=== PATIENT | male | born 1955 | race Caucasian/White ===

== ENCOUNTER 2016-12-20 09:48 | Emergency (ER) | payer MEDICARE ==
[~2016-12-20] VITALS: Ht 182.9 cm; Wt 90.9 kg
[~2016-12-20 09:48] MED LIST: ASPI325T32 PO; BUPR300T51 PO; LIP40 PO; NAPR500T PO; POTA99TA21 PO; SELE200T11 PO; VITA1CAP PO
[2016-12-20 09:51] VITALS: BP 126/80; PULSE 62; RESP 18; O2SAT 95
--- NOTE | 2016-12-20 10:22 | ED.REPORT ---
HPI-Back Pain 40 and Over Date of Service Dec 20, 2016 ED Provider: Carrie Go MD Pt is a 61 y/o male w/ a hx of chronic back pain, severe osteoarthritis, herniated discs, spinal fusion, CAD, CHF, HTN, presenting to the ED c/o gradually worsening lumbar back pain onset 2 weeks ago. For the past 2 days, he has been experiencing bilateral leg weakness with associated numbness of the bilateral feet. He has never experienced numbness or weakness of his legs before. He had a BM this morning which reduced his pain from 10/10 to 3/10 which relieved his leg weakness. He denies bowel/bladder incontinence, fever. He denies possible mechanism of injury. He has been more sedentary than normal but otherwise is unsure what may be causing this. He has an appointment with neurosurgeon MATEO Maldonado tomorrow. Latest MRIs: Lumbar in 2003 and 2005. Cervical in February 2016. Nursing Notes Stated Complaint: BACK PAIN Chief Complaint: Back Pain or Injury Nursing Notes Reviewed: Yes Allergies: Coded Allergies: lisinopril (Verified Allergy, Mild, cough, 01/25/16) Scheduled Aspirin (Aspirin) 325 Mg Tablet 325 MG PO DAILY Atorvastatin (Lipitor) 40 Mg Tablet 40 MG PO DAILY Bupropion ER (Wellbutrin XL) 300 Mg Tab.er.24h 300 MG PO DAILY Selenomethionine (Selenium) 200 Mcg Tablet 200 MCG PO DAILY Scheduled PRN Naproxen (Naprosyn) 500 Mg Tablet 500 MG PO BID PRN PRN For Pain Miscellaneous Medications Potassium Gluconate (Potassium) 99 Mg Tablet 99 MG PO Vitamin B Complex (Vitamin B Complex) 1 Each Capsule 1 EACH PO General Time Seen by MD: 10:04 Chief Complaint Lumbar pain Hx Obtained From: Patient Arrived By: Wheelchair Sudden in Onset?: No Onset Occurred: More than a week ago... (2 weeks) Symptom Duration: Since onset Caused by: Spontaneous/no mechanism Location: : Perispinal lumbar: Spinal lumbar area Quality: Painful Severity: Current: Moderate Severity: Maximum: Severe Similar Sx Previous: Yes Past Medical History Past Medical History Hx [place] athritis Chronic back pain Reports: Congestive heart failure, Coronary artery disease, Hypertension Reports: Depression Past Surgical History Spinal fusion Reports: Appendectomy, CABG, Inguinal hernia repair Smoking History Current Every Day Smoker Social History Other Social History: Good social support, , Local resident Ambulatory Status Independent Review of Systems Constitutional: Denies: Chills, Fever Respiratory: Denies: Shortness of breath Cardiovascular: Denies: Chest pain GI: Denies: Abdominal pain Musculoskeletal: Reports: Lumbar pain Neurologic: Reports: Numbness, Weakness, Denies: Bladder dysfunction, Bowel dysfunction Complete sys rev & neg: except as marked. Physical Exam Initial Vital Signs Vital Signs (First) Date Time Temp Pulse Resp B/P Pulse Ox O2 Delivery O2 Flow Rate FiO2 12/20/16 09:51 36.7 62 18 126/80 95 Room Air Initial VS: Reviewed, Vital signs normal Head / Eyes: Atraumatic, Normocephalic, PERRL ENT: Mucous membranes moist, Conjunctiva normal, No scleral icterus Neck: Supple, Full range of motion Skin: Warm, Dry, No cyanosis Psychiatric: Mood/affect normal, Behavior normal, Normal thought content General/Constitutional: Awake, Alert, Cooperative, Not toxic appearing Appearance / Presentation: Positive: In pain Respiratory / Chest: Atraumatic, Breath sounds NL, Breath sounds = bilat, No respiratory distress, No rales, No rhonchi, No wheezing, No retractions, No stridor, No chest tenderness, No chest wall deformity, No crepitus Cardiovascular: Heart rate NL, Regular rhythm, Heart sounds NL, No gallop, No murmurs, No rubs, Cap refill not delayed, Peripheral circulation NL Abdomen: Atraumatic, Soft Back: Atraumatic Waves of positional muscle spasm with diaphoresis accompanied with severe pain Neurologic: Oriented X3, Speech NL 3+ patellar reflex on left, 2+ on the right LLE has decreased sensation from the medial aspect of the knee down to the toes. Lateral aspect decreased sensation from mid calf down to the toes Interpretation & Diagnostics Interpretation & Diagnostics: Lumbar spine MRI w/ and w/out contrast: IMPRESSION: 1. Status post L4-L5 fusion. 2. Multilevel degenerative disc disease. 3. Multilevel facet arthropathy. 4. Right central L3-L4 disc extrusion. Extruded disc material impinges upon the right L4 nerve root. Please correlate with clinical data. 5. Severe L3-L4 central canal stenosis. Mild to moderate L2-L3 central canal narrowing. Mild T12-L1 and L4-L5 central canal narrowing. 6. Mild bilateral L2-L3 and L5-S1 neural foraminal narrowing. Severe right and moderate left L3-L4 neural foraminal narrowing. Severe right and mild left L4-L5 neural foraminal narrowing. Dictated by: Mari Wesley MD, PhD on 12/20/2016 at 12:53 Approved by: Mari Wesley MD, PhD on 12/20/2016 at 13:03 Re-Eval/Medical Decision Re-Evaluation/Progress #1: Time of Eval: 11:30 Re-Evaluation/Progress Note: Informed pt of need for MRI. He agrees with plan. Re-Evaluation/Progress #2: Time of Eval: 13:46 Patient Status: Pain improved Re-Evaluation/Progress Note: Pt rechecked. Informed pt of plan for treatment. Pt understands and agrees with plan for treatment. F/U instructions and RTER warnings given. All questions addressed. 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 With new and progressive neurologic symptoms and no recent imaging, he recommends MRI of the lumbar spine with and without contrast with spin echo view. Counseled Regarding: Diagnosis, Lab results, Need for follow-up, When/why to return to ED Discharge & Departure Impression: Primary Impression: Lumbar radiculopathy, acute Additional Impression: Lumbar radiculopathy, chronic Disposition: Home Discharge Condition All VS Reviewed: Yes Condition: Stable Additional Instructions: Your MRI shows significant findings that do correlate with your symptoms. Fortunately there is no need for emergent surgery today. You need to keep your apt with the neurosurgical clinic tomorrow to see what the next treatment opts for you may be. At this point, ibuprofen and the vicodin you currently have are the best options for you. I'm sorry you are hurting so much. I hope there is some relief for you in the near future. Referrals: Pennie Matthews PA-C (PCP) Tien Maldonado PA-C Attestation Portions of this note were transcribed by Jordan Alvarenga. I, Dr. Go personally performed the history, physical exam and medical decision-making; I reviewed and confirmed the accuracy of the information in the transcribed note. Signed by Bartolo Alonso, 12/20/16 - [id number] copies to: Tien Maldonado PA-C; Pennie Matthews PA-C, Shawna L MD Dec 20, 2016 10:22 JORDAN ALVARENGA Dec 20, 2016 10:54
[2016-12-20] MEDS ORDERED: Ketorolac 30 mg/mL 2 mL Inj IM ONE (10:25)
--- NOTE | 2016-12-20 13:04 | DRSVH ---
PROCEDURE: MRI LUMBAR SPINE WITHOUT CONTRAST ([id number]) INDICATIONS: New, progressive RLE weakness and numbness TECHNIQUE: Noncontrast sagittal T1 spin echo and T2 fast echo, sagittal STIR, axial T1 and T2 fast spin echo thr ough the lumbar spine. In cases with scoliosis, additional coronal T2 fast spin echo may be performe d. COMPARISON: [facility], MR, LUMBAR SPINE W/O CONTRAST, 10/25/2006, 17:57. FINDINGS: Image quality: Excellent. Alignment and Curvature: Postsurgical changes compatible with prior L4 and L5 r fusion are noted. Th ere is normal bony alignment and curvature. Bone Marrow: Reactive endplate changes are noted adjacent to the L4-L5 disc. No acute vertebral body compression fractures. Spinal Cord: Conus medullaris terminates at the L1 level. Visualized cord demonstrates normal signa l and size. Paraspinous Soft Tissues: No paravertebral masses. T12-L1: Loss of disc signal and height. Moderate, diffuse disc bulge. Mild central canal secondary to disc disease. No neural foraminal narrowing. No neural impingement. L1-L2: Loss of disc signal. Mild, diffuse disc bulge. No central stenosis. No neural foraminal narrow ing. No neural impingement. L2-L3: Loss of disc signal and mild loss of disc height. Moderate, diffuse disc bulge. Mild facet and mild ligamentum flavum hypertrophy. Mild to moderate narrowing of the central canal secondary to dis c disease and posterior element hypertrophy. Mild bilateral neural foraminal narrowing secondary to d isc and facet disease. L3-L4: Loss of disc signal and mild loss of disc height. Moderate, diffuse disc bulge. Moderate-sized right central disc extrusion. Mild facet and mild ligamentum flavum hypertrophy. Severe central sten osis secondary to disc disease and posterior element hypertrophy. Right central extruded disc materia l impinges upon the right L4 nerve root. Severe right and moderate left neural foraminal narrowing se condary to disc and facet disease. L4-L5: Loss of disc signal and height. Mild, diffuse disc bulge. Mild bilateral facet hypertrophy. Mi ld narrowing of the central canal secondary to disc disease. Severe right and mild left neuroforamina l narrowing secondary to disc and facet disease. L5-S1: Loss of the signal. Minimal, diffuse disc bulge. Moderate bilateral facet hypertrophy. No cent ral stenosis. Mild bilateral neuroforaminal narrowing secondary to disc and facet disease. No neural impingement. IMPRESSION: 1. Status post L4-L5 fusion. 2. Multilevel degenerative disc disease. 3. Multilevel facet arthropathy. 4. Right central L3-L4 disc extrusion. Extruded disc material impinges upon the right L4 nerve root. Please correlate with clinical data. 5. Severe L3-L4 central canal stenosis. Mild to moderate L2-L3 central canal narrowing. Mild T12-L1 a nd L4-L5 central canal narrowing. 6. Mild bilateral L2-L3 and L5-S1 neural foraminal narrowing. Severe right and moderate left L3-L4 ne ural foraminal narrowing. Severe right and mild left L4-L5 neural foraminal narrowing. Dictated by: Mari Wesley MD, PhD on 12/20/2016 at 12:53 Approved by: Mari Wesley MD, PhD on 12/20/2016 at 13:03
[2016-12-20 13:48] VITALS: BP 122/78; PULSE 60; RESP 18; O2SAT 95
== END 2016-12-20 13:50 | disposition home or self-care (01) ==
LOC: SED 10:54
DX: M54.16 Radiculopathy, lumbar region (principal); I11.0 Hypertensive heart disease with heart failure; I50.9 Heart failure, unspecified; I25.10 Atherosclerotic heart disease of native coronary artery without angina pectoris; I25.2 Old myocardial infarction; F17.200 Nicotine dependence, unspecified, uncomplicated; Z95.1 Presence of aortocoronary bypass graft; Z90.49 Acquired absence of other specified parts of digestive tract; Z79.82 Long term (current) use of aspirin; Z88.8 Allergy status to other drugs, medicaments and biological substances
CPT/HCPCS: 72148; 96372; 99284; J1885

== ENCOUNTER 2016-12-21 06:29 | Emergency (ER) | payer MEDICARE ==
[~2016-12-21] VITALS: Ht 182.9 cm; Wt 90.9 kg
[2016-12-21] MEDS ORDERED: Ketorolac 30 mg/mL 2 mL Inj IM ONE (06:35)
--- NOTE | 2016-12-21 06:36 | ED.REPORT ---
HPI-Back Pain 40 and Over Date of Service Dec 21, 2016 ED Provider: Pt is a 61 y/o male w/ a hx of chronic back pain, severe osteoarthritis, herniated discs, spinal fusion, CAD, CHF, HTN, presenting to the ED c/o gradually worsening lumbar back pain onset 2 weeks ago. For the past few days he has also noticed bilateral leg weakness with associated numbness of the bilateral feet. He has never experienced numbness or weakness of his legs before. He denies bowel/bladder incontinence, fever. He denies possible mechanism of injury. He has been more sedentary than normal but otherwise is unsure what may be causing this. He has an appointment with neurosurgeon MATEO Maldonado today Nursing Notes Stated Complaint: BACK PAIN Nursing Notes Reviewed: Yes Allergies: Coded Allergies: lisinopril (Verified Allergy, Mild, cough, 01/25/16) Scheduled Aspirin (Aspirin) 325 Mg Tablet 325 MG PO DAILY Atorvastatin (Lipitor) 40 Mg Tablet 40 MG PO DAILY Bupropion ER (Wellbutrin XL) 300 Mg Tab.er.24h 300 MG PO DAILY Selenomethionine (Selenium) 200 Mcg Tablet 200 MCG PO DAILY Scheduled PRN Naproxen (Naprosyn) 500 Mg Tablet 500 MG PO BID PRN PRN For Pain Miscellaneous Medications Potassium Gluconate (Potassium) 99 Mg Tablet 99 MG PO Vitamin B Complex (Vitamin B Complex) 1 Each Capsule 1 EACH PO General Time Seen by MD: 06:35 Chief Complaint Back pain Hx Obtained From: Patient, EMS Arrived By: Ambulance Sudden in Onset?: No Onset Occurred: More than a week ago... Symptom Duration: Since onset Caused by: Spontaneous/no mechanism, Chronic Injury Location: : Perispinal lumbar Quality: Painful Severity: Current: Moderate Severity: Maximum: Severe Recent Healthcare: Recent doctor visit Similar Sx Previous: Yes Past Medical History Past Medical History Hx [place] athritis Chronic back pain Reports: Congestive heart failure, Coronary artery disease, Hypertension Reports: Depression Past Surgical History Spinal fusion Reports: Appendectomy, CABG, Inguinal hernia repair Smoking History Current Every Day Smoker Social History Other Social History: Good social support, , Local resident Ambulatory Status Independent Review of Systems Constitutional: Denies: Fever Musculoskeletal: Reports: Back pain Neurologic: Reports: Numbness, Weakness, Denies: Bladder dysfunction, Bowel dysfunction Complete sys rev & neg: except as marked. Physical Exam Initial Vital Signs Vital Signs (First) Date Time Temp Pulse Resp B/P Pulse Ox O2 Delivery O2 Flow Rate FiO2 12/21/16 06:49 36.1 61 22 152/91 95 Room Air Initial VS: Reviewed Head / Eyes: Atraumatic, Normocephalic, PERRL ENT: Mucous membranes moist, Conjunctiva normal, No scleral icterus Neck: Supple, Non-tender, Full range of motion Lymphatic: No lymphadenopathy Extremities: Vascular intact, Neuro intact, No swelling, No tenderness Skin: Warm, Dry, No cyanosis Psychiatric: Mood/affect normal, Behavior normal, Normal thought content General/Constitutional: Awake, Alert, Cooperative, Not toxic appearing Respiratory / Chest: Atraumatic, Breath sounds NL, Breath sounds = bilat, No respiratory distress, No rales, No rhonchi, No wheezing Cardiovascular: Heart rate NL, Regular rhythm, Heart sounds NL, No gallop, No murmurs, No rubs, Cap refill not delayed, Peripheral circulation NL, Pulses = bilaterally, No gross BP differential Abdomen: Soft, Non-tender, No guarding, No rebound, No distention, No palpable mass, No pulsatile mass Back: Atraumatic Waves of positional muscle spasm with diaphoresis accompanied with severe pain Neurologic: Oriented X3, Speech NL 3+ patellar reflex on left, 2+ on the right. LLE has decreased sensation from the medial aspect of the knee down to the toes. Lateral aspect decreased sensation from mid calf down to the toes. Re-Eval/Medical Decision Med Decision/Clinical Course pain adequately controlled by toradol. Headed to neurosurg apt from ED today. Source of Hx: Old records, EMS Summary of Info: Lumbar spine MRI w/ and w/out contrast: IMPRESSION: 1. Status post L4-L5 fusion. 2. Multilevel degenerative disc disease. 3. Multilevel facet arthropathy. 4. Right central L3-L4 disc extrusion. Extruded disc material impinges upon the right L4 nerve root. Please correlate with clinical data. 5. Severe L3-L4 central canal stenosis. Mild to moderate L2-L3 central canal narrowing. Mild T12-L1 and L4-L5 central canal narrowing. 6. Mild bilateral L2-L3 and L5-S1 neural foraminal narrowing. Severe right and moderate left L3-L4 neural foraminal narrowing. Severe right and mild left L4-L5 neural foraminal narrowing. Dictated by: Mari Wesley MD, PhD on 12/20/2016 at 12:53 Re-Evaluation/Progress : Time of Eval: 08:08 Re-Evaluation/Progress Note: The patient is feeling better and would like to go home. Counseled Regarding: Diagnosis, Need for follow-up, When/why to return to ED Discharge & Departure Impression: Primary Impression: Lumbar radiculopathy, acute Additional Impression: Lumbar radiculopathy, chronic Disposition: Home Discharge Condition All VS Reviewed: Yes Condition: Stable Additional Instructions: Your MRI that was taken yesterday shows significant findings that do correlate with your symptoms. Fortunately there is no need for emergent surgery today. You need to keep your apt with the neurosurgical clinic today to see what the next treatment opts for you may be. At this point, ibuprofen and the vicodin you currently have are the best options for you. I'm sorry you are hurting so much. I hope there is some relief for you in the near future. Referrals: Pennie Matthews PA-C (PCP) Scribe Attestation Portions of this note were transcribed by Kriss Chapman. I, Dr. Go personally performed the history, physical exam and medical decision-making; I reviewed and confirmed the accuracy of the information in the transcribed note. Signed by: Bartolo Kennedy, 12/21/2016 and 0810. copies to: Pennie Matthews PA-C, Shawna L MD Dec 21, 2016 06:36 Kriss Chapman Dec 21, 2016 06:57
[2016-12-21 06:49] VITALS: BP 152/91; PULSE 61; RESP 22; O2SAT 95
== END 2016-12-21 08:47 | disposition home or self-care (01) ==
LOC: EDSEX 06:29 → SED 06:29 → EDBD 06:29 → EDUNIT# 06:29 → SED 08:47
DX: M54.16 Radiculopathy, lumbar region (principal); I10 Essential (primary) hypertension; I25.10 Atherosclerotic heart disease of native coronary artery without angina pectoris; I50.9 Heart failure, unspecified; F17.200 Nicotine dependence, unspecified, uncomplicated; Z79.82 Long term (current) use of aspirin; Z88.8 Allergy status to other drugs, medicaments and biological substances
CPT/HCPCS: 96372; 99283; G0463; J1885

== ENCOUNTER → 2017-08-08 | Day surgery (SDC) | payer MEDICARE ==
[~2017-08-08] VITALS: Ht 182.9 cm; Wt 89.4 kg
[~2017-08-08] MED LIST changes: +ALPR0.5T8 PO; -BUPR300T51 PO; +BUPR450T PO; +HYDR-3740 PO; -LIP40 PO; +METO50TA3 PO; +MULT-1018 PO; -NAPR500T PO; +NITR0.4T SL; -POTA99TA21 PO; +Propofol 10,000 mCg/mL 20 mL Inj ONE; -SELE200T11 PO; -VITA1CAP PO; +fentaNYL-PF 50 mCg/mL 2 mL Inj ONE
--- NOTE | 2017-08-08 08:02 | PCM.HPANE ---
Patient Data Surgeon Admitting Provider: Attending Provider:Isaac Leos MD Primary Care Physician:Pennie Matthews PA-C Other Provider:Brenda Rg Anesthesia Reason for Visit Melena Ht/WT & BMI Body Mass Index Allergies Coded Allergies: lisinopril (Verified Adverse Reaction, Mild, cough, 08/08/17) Past Anesthesia History Anesthesia History: Denies:: Abnormal Airway, Anesthesia Reactions, Difficult Intubation, Fam Anesthesia Reaction, Fam Malignant Hypertherm, Malignant Hyperthermia Diabetes History Hx Diabetes?: No MRSA MRSA: No Medications Blood Thinner: Aspirin Hypertension Medication: Yes Home Meds Incl Beta Victor Hugo: Yes Date Beta Victor Hugo Taken: Aug 08, 2017 Time Beta Victor Hugo Taken: 07:00 Reported Medications Nitroglycerin SL (Nitrostat)0.4 Mg Tab.subl0.4 Mg SL Q5MIN PRN For Chest Pain # 1 BOTTLE 08/07/17 Metoprolol Tartrate 50 Mg Shzavj76 Mg PO BID 30 Days Ref 0 08/07/17 Multivitamin (Multi Vitamin Daily)1 Each Tablet1 Each PO DAILY 30 Days Ref 0 08/07/17 Hydrocodone-Acetaminophen 10-325 mg 1 Each Tablet1 Tablet PO Q6H PRN For Pain Ref 0 08/07/17 Discontinued Reported Medications Bupropion HCl (Forfivo Xl)450 Mg Tab.er.67i409 Mg PO DAILY 08/07/17 Aspirin 325 Mg Kpmklt125 Mg PO DAILY #1 BOTTLE 08/07/17 Alprazolam 0.5 Mg Tablet0.5 Mg PO TID PRN For Anxiety Ref 0 08/07/17 Selenomethionine (Selenium)200 Mcg Nqbvje332 Mcg PO DAILY 01/25/16 Aspirin 325 Mg Rrkyym206 Mg PO DAILY #1 BOTTLE 01/25/16 Bupropion ER (Wellbutrin XL)300 Mg Tab.er.91a308 Mg PO DAILY #30 TABLET Ref 0 08/12/14 Atorvastatin (Lipitor)40 Mg Guopvj26 Mg PO DAILY 30 Days Ref 0 08/12/14 Potassium Gluconate (Potassium)99 Mg Untdos39 Mg PO 08/12/14 Vitamin B Complex 1 Each Capsule1 Each PO 08/12/14 Discontinued Scripts Naproxen (Naprosyn)500 Mg Zjycco181 Mg PO BID PRN For Pain #20 TABLET Prov:Easton Villalobos MD 01/25/16 History History of ENT Problems?: No HEENT History: Denies:: Abnormal Airway Difficult Intubation Dysphagia Hearing Problem Denture Type: None Teeth Condition: No Teeth Hx of Heart Problems?: Yes Cardiovascular History: Positive for:: Chest Pain Congestive Heart Failure Hypertension Denies:: AICD Atrial Fibrillation Pacemaker Valvular Heart Disease Hx of Respiratory Problem?: No Respiratory History: Denies:: Asthma COPD Cough Hemoptysis Pneumonia Tuberculosis Hx Neurologic Problems?: No Neurological History: Denies:: CVA Hx of GI Problems?: Yes Hx of Problems?: No Hx Musculoskeletal Problems?: No Musculoskeletal History: Denies:: Joint Replacement Psycho Social History: Positive for:: Anxiety Hx Depression Hx Surgeries?: Yes (appendectomy,inguinal herniax2, bypass,spinal fusion) Hx Any Other Health Problems?: Yes Hx Diabetes: No Hx Alcohol Use: NoHx Substance Use: Yes (Marijuana) Smoking Status: Current Every Day Smoker Stop/Bang Risk Assessment Category Category 1A: Patient has history of documented sleep apnea, and HAS NOT received any narcotic, sedative or anesthesia administration during this stay. Category 1B: Patient has history of documented sleep apnea, and HAS received any narcotic , sedative or anesthesia administration during this stay Category 2: Patient has SUSPECTED Obstructive Sleep Apnea, and HAS received any narcotic , sedative or anesthesia administration during this stay. Category 3: Patient has SUSPECTED Obstructive Sleep Apnea and HAS NOT received narcotic, sedative or anesthesia administration during this stay. Category 4: Outpatient in Procedural Areas with known sleep apnea or who screen positive for High Risk via the STOP/BANG questionnaire. Exam Exam General Appearance: Alert, Oriented X3, Cooperative, No Acute Distress HEENT/AIRWAY: MP 2 Lungs: Normal Air Movement Heart: Exam Unremarkable Plan Impression Patient chart reviewed, patient interviewed and anesthestic plan with risks, benefits, and alternatives discussed, and informed consent obtained. NPO per Anesth. Guidelines: Yes ASA Physical Status: ASA3 Severe Disease Anesthetic Plan: MAC Bene/Risks/Altern/Consents: Yes HP Complete Prior to Induction: Yes Tien Verduzco MD Aug 08, 2017 08:02
[2017-08-08 15:13] VITALS: BP 130/80; PULSE 63; RESP 14; O2SAT 96
[2017-08-08] MEDS: Lactated Ringer's 1,000 ML IV ONE ×2 (16:32→16:45)
[2017-08-08 16:55] VITALS: BP 115/68; PULSE 70; RESP 16; O2SAT 97
--- NOTE | 2017-08-08 17:03 | PCM.ANEP1 ---
Post Anesthesia PACU Phase 1 Assessment Vital Signs Vital Signs Date Time Temp Pulse Resp B/P Pulse Ox O2 Delivery O2 Flow Rate FiO2 08/08/17 16:55 70 16 115/68 97 Room Air 08/08/17 15:13 37 63 14 130/80 96 Room Air Anesthetic Administered: MAC Level of Alertness: Awake, talking BUI's with Equal Strength: Yes Pain: No Nausea or Vomiting: No CV Function & Hydration Stable: Yes Airway Device: Oxygen Delivery: Room Air Lungs: Normal Air Movement Dermatome Level: Full Sensation PACU Phase 2 Assessment Complications: No Follow up Care: No Patient Instructions Provided: N/A Tein Verduzco MD Aug 08, 2017 17:03
[2017-08-08 17:05] VITALS: BP 137/81; PULSE 62; RESP 16; O2SAT 99
[2017-08-08 17:15] VITALS: BP 123/82; PULSE 64; RESP 16; O2SAT 100
--- NOTE | 2017-08-08 19:44 | ENDO ---
[address] [address] ENDOSCOPY PROCEDURE PATIENT: JANEL JULIAN : 1955 MR#: [id number] ADMIT: 08/08/2017 JOB ID: [id number] DATE: 08/08/2017 PROCEDURE: Esophagogastroduodenoscopy (EGD). INDICATION: Melena. ANESTHESIA: Please see Dr. Verduzco's anesthesia report for details regarding ASA classification, Mallampati score, and medications. INSTRUMENT USED: GIF Q180. PROCEDURE DETAILS: After informed consent was obtained, the patient was brought into the GI suite, where he was placed on oxygen via nasal cannula and monitored with continuous pulse oximeter, telemetry, and blood pressure monitoring. A time-out was performed, then he was placed in the left lateral decubitus position and a bite block was placed. The standard esophagogastroduodenoscopy scope was inserted through the bite block and advanced under direct visualization to the second portion of the duodenum without difficulty. FINDINGS: 1. In the duodenal bulb the mucosa appeared erythematous. Multiple random biopsies were obtained in the duodenal bulb. The remainder of the examined portion of the duodenum appeared unremarkable. 2. Normal appearing pylorus. Normal appearing antrum. In the body of the stomach the mucosa had a nodular appearance. Multiple random biopsies were obtained. 3. Retroflexed views in the gastric body revealed a normal appearing cardia and fundus. A hiatal hernia was appreciated. 4. The diaphragmatic hiatus was at approximately 42 cm and the GE junction, which was regular, was at 40 cm. The esophagus appeared normal. IMPRESSION: 1. Nodular gastric mucosa. 2. Small hiatal hernia. 3. Erythematous mucosa in the duodenal bulb. RECOMMENDATIONS: 1. Await biopsy results. 2. Proceed to colonoscopy. COMPLICATIONS: None. ESTIMATED BLOOD LOSS: Less than 5 mL. PROCEDURE PERFORMED: Colonoscopy. INDICATION: Melena. ANESTHESIA: Please see above for ASA classification, Mallampati score, and medications. INSTRUMENT USED: PCF H 180 AL PREPARATION QUALITY: Fair. PROCEDURE DETAILS: After completion of the EGD exam, the patient was turned and then a digital rectal exam was performed, which was unremarkable. The colonoscope was then inserted into the rectum and advanced under direct visualization to the cecum, which was identified by the presence of the ileocecal valve and appendiceal orifice. Once the cecum was reached, the colonoscope was withdrawn back into the rectum and the mucosa and lumen were examined. In the rectum, retroflexion was performed. Following retroflexion, the remaining air in the rectum was suctioned and the procedure was completed. FINDINGS: 1. In the cecum there was an approximately 6 mm sessile polyp that was removed with a combination of cold snare and cold biopsy forceps. 2. In the descending colon there was a diminutive polyp that was removed with cold biopsy forceps. IMPRESSION: 1. Cecal polyp. 2. Descending colon polyp. RECOMMENDATIONS: Repeat colonoscopy pending polyp pathology results. COMPLICATIONS: None. ESTIMATED BLOOD LOSS: Less than 5 mL.
--- NOTE | 2017-08-13 17:08 | PATH ---
SURGICAL PATHOLOGY Attending Physician:Chrissy Yu CASE STATUS: Signed Out PATIENT NAME: JANEL JULIAN PID: [id number] : 1955 DATE COLLECTED:08/08/2017 00:00 SPECIMEN: 1: Duodenum, Biopsy 2: Gastric, Biopsy 3: Colon, Polyp 4: Colon, Polyp CLINICAL HISTORY: 1). DUODENUM BIOPSY 2). GASTRIC BIOPSY RULE OUT H PYLORI 3). CECAL POLYP 4). DESCENDING COLON POLYP FINAL DIAGNOSIS: 1. Duodenum, Biopsy: Duodenal mucosa with foveolar metaplasia. Negative for active inflammation, features of sprue, dysplasia or malignancy. 2. Stomach, Biopsy: Gastric body mucosa with no diagnostic abnormality. No evidence of Helicobacter organisms on H&E stain. Negative for intestinal metaplasia, dysplasia, and malignancy. 3. Cecal Polyp: Tubular adenoma. 4. Descending Colon Polyp, Biopsy: Tubular adenoma. ICD10: K92.1 D12.6 GROSS DESCRIPTION: The specimen is received in four formalin filled containers labeled with the patient's name. 1). The specimen is labeled "duodenum" and consists of a 0.3 x 0.3 x 0.2 CM portion of tissue which is entirely submitted in cassette 1A. 2). The specimen is labeled "gastric" and consists of multiple portions of tissue which aggregate to 0.5 x 0.4 x 0.3 CM. The specimen is entirely submitted in cassette 2A. 3). The specimen is labeled "cecal polyp" and consists of multiple portions of tissue which aggregate to 0.3 x 0.3 x 0.2 CM. The specimen is entirely submitted in cassette 3A. 4). The specimen is labeled "descending colon polyp" and consists of 2 portions of tissue which aggregate to 0.3 x 0.2 x 0.2 CM. The specimen is entirely submitted in cassette 4A. 08/09/2017DC ICD-9 CODES: CPT CODES: 1: 88460 2: 97485 3: 19747 4: 30039 Electronically Signed Out Brien Shea MD, Ph.D. [facility] Pathology [facility], [place] [address] Technical component performed at [facility], [facility] [address], [place], [address]
== END | disposition home or self-care (01) ==
LOC: END 00:45
PROVIDERS: ATTEND Internal Medicine Gastroenterology
DX: K92.1 Melena (principal); D12.0 Benign neoplasm of cecum; D12.4 Benign neoplasm of descending colon; Z80.0 Family history of malignant neoplasm of digestive organs; K31.7 Polyp of stomach and duodenum; K44.9 Diaphragmatic hernia without obstruction or gangrene; K31.89 Other diseases of stomach and duodenum; E78.5 Hyperlipidemia, unspecified; I10 Essential (primary) hypertension; I25.10 Atherosclerotic heart disease of native coronary artery without angina pectoris; F32.9 Major depressive disorder, single episode, unspecified; Z95.1 Presence of aortocoronary bypass graft; Z87.891 Personal history of nicotine dependence; Z79.82 Long term (current) use of aspirin
CPT/HCPCS: 43239; 45380; 45381; 45385; J2250; J2704; J3010; J7120